=== PATIENT | female | born 1930 | race African-American/Black ===

== ENCOUNTER 2019-01-07 19:29 | Inpatient (IN) | payer OTHER ==
[~2019-01-07] VITALS: Ht 162.6 cm; Wt 68.0 kg
[2019-01-07] MEDS ORDERED: SODIUM CHLORIDE 0.9% 1,000 ML IV ONE (20:06)
[2019-01-07] MEDS ORDERED: ASPIRIN 325MG EC TABLET PO ONE (20:15)
[2019-01-07 20:24] LABS: BASOPHILS % 0.4 % (0.0-2.0); EOSINOPHILS % 1.1 % (0.0-5.0); HEMATOCRIT. 33.5 % (36.0-48.0); HEMOGLOBIN. 11.2 g/dL (12.0-16.0); LYMPHOCYTES % 15.3 % (20.0-50.0); MEAN CORPUSCULAR HEMOGLOBIN 31.3 pg (28.0-32.0); MEAN CORPUSCULAR VOLUME 93.3 fL (81.0-99.0); MEAN PLATELET VOLUME 8.5 fl (7.4-10.4); MONOCYTES % 7.8 % (2.0-8.0); NEUTROPHILS % 75.4 % (40.0-76.0); PLATELET 218 x1000/uL (130-400); RED BLOOD CELL COUNT 3.59 mill/uL (4.2-5.4); RED CELL DISTRIBUTION WIDTH 13.9 % (11.6-14.6)
[2019-01-07 20:28] LABS: CHLORIDE 107 mEq/L (98-107)
[2019-01-07 20:32] LABS: ETHANOL BLOOD < 10 mg/dL
[2019-01-07 20:55] LABS: CLARITY URINE CLOUDY (CLEAR); COLOR URINE YELLOW (YELLOW); KETONES URINE NEGATIVE (NEGATIVE); LEUKOCYTE ESTERASE URINE 3+ (NEGATIVE); NITRITE URINE NEGATIVE (NEGATIVE); OCCULT BLOOD URINE 1+ (NEGATIVE); PH URINE 5.5 (4.5-8.0); PROTEIN URINE NEGATIVE (NEGATIVE); SPECIFIC GRAVITY URINE 1.014 (1.005-1.030)
[2019-01-07] MEDS ORDERED: CEFTRIAXONE 1 G PREMIX 50 ML IV ONE (22:15)
[2019-01-08 00:02] VITALS: BP 129/51
[2019-01-08] MEDS ORDERED: ACETAMINOPHEN 325MG TABLET PO PRN (01:00)
[2019-01-08] MEDS ORDERED: POTA10CA42 PO (01:07)
[2019-01-08] MEDS ORDERED: LATA7.5D OP (01:07)
[2019-01-08] MEDS ORDERED: THYR32.510 MT (01:07)
[2019-01-08] MEDS ORDERED: MIRT7.5T11 PO (01:07)
[2019-01-08] MEDS ORDERED: LOSA1TAB37 MT (01:07)
[2019-01-08 02:50] LABS: CREATINE KINASE 64 IU/L (26-192)
[2019-01-08 02:51] LABS: CREATINE KINASE MB FRACTION 1.2 ng/mL (0.5-3.6)
[2019-01-08 04:00] VITALS: BP 111/53
[2019-01-08 05:59] LABS: BASOPHILS % 0.6 % (0.0-2.0); EOSINOPHILS % 1.9 % (0.0-5.0); HEMATOCRIT. 29.5 % (36.0-48.0); HEMOGLOBIN. 10.1 g/dL (12.0-16.0); LYMPHOCYTES % 27.2 % (20.0-50.0); MEAN CORPUSCULAR HEMOGLOBIN 31.8 pg (28.0-32.0); MEAN CORPUSCULAR VOLUME 93.2 fL (81.0-99.0); MEAN PLATELET VOLUME 9.1 fl (7.4-10.4); MONOCYTES % 8.9 % (2.0-8.0); NEUTROPHILS % 61.4 % (40.0-76.0); PLATELET 194 x1000/uL (130-400); RED BLOOD CELL COUNT 3.17 mill/uL (4.2-5.4); RED CELL DISTRIBUTION WIDTH 13.7 % (11.6-14.6)
[2019-01-08 06:08] LABS: CHLORIDE 110 mEq/L (98-107)
[2019-01-08 06:16] LABS: HDL CHOLESTEROL 42 mg/dL (40-59)
[2019-01-08 06:18] LABS: LDL CHOLESTEROL 71 mg/dL (5-100)
[2019-01-08] MEDS: PANTOPRAZOLE 40MG DR TABLET PO SCH (06:27)
[2019-01-08 08:00] VITALS: BP 119/36
[2019-01-08] MEDS: ASPIRIN 81MG TABLET PO SCH (08:31)
[2019-01-08] MEDS: POTASSIUM CHLORIDE 10MEQ TABLET SR PO SCH (08:31)
[2019-01-08] MEDS: ENOXAPARIN 40MG/0.4ML SYR SUBCUT SCH (08:31)
[2019-01-08] MEDS ORDERED: NATURE THROID 32.5 MG PO SCH (09:00)
[2019-01-08] MEDS: SODIUM CHLORIDE 0.45% 1,000 ML IV SCH ×2 (11:26→23:07)
[2019-01-08 11:57] LABS: BG BASE EXCESS -0.7 mmol/L (-2.0-2.0); BG CARBOXYHEMOGLOBIN 1.1 % (0.5-1.5); BG DEOXYHEMOGLOBIN 5.3 % (0.0-5.0); BG FRACTION INSPIRED OXYGEN 21; BG HCO3 ACT 23.6 mmol/L (22.0-26.0); BG METHEMOGLOBIN 0.3 % (0.0-1.5); BG OXYGEN SATURATION 94.6 % (92.0-98.5); BG OXYHEMOGLOBIN 93.3 % (94.0-97.0); BG PH 7.411 (7.350-7.450); BG PO2 71.9 mmHg (75.0-100.0); BG SAMPLE SITE RIGHT RADIAL; BG TOTAL HEMOGLOBIN 13.8 g/dL (12.0-18.0); BG VENT MODE ROOM AIR
[2019-01-08 13:51] LABS: D-DIMER 0.95 mg/L FEU (<0.50); INR 1.1
[2019-01-08] MEDS ORDERED: HYDROCODONE/ACETAMINOPHEN 5/325MG TABLET PO PRN (14:30)
[2019-01-08] MEDS ORDERED: LACTULOSE 20G/30ML UDC PO PRN (14:30)
[2019-01-08] MEDS ORDERED: HYDRALAZINE 20MG/ML VIAL IV PRN (14:30)
[2019-01-08] MEDS ORDERED: DIPHENHYDRAMINE 50MG/ML VIAL IV PRN (14:30)
[2019-01-08] MEDS ORDERED: IPRATROPIUM/ALBUTEROL 0.5-3(2.5)MG/3ML NEB HHN PRN (14:30)
[2019-01-08] MEDS ORDERED: LORAZEPAM 2MG/ML CPJ IV PRN (14:30)
[2019-01-08] MEDS ORDERED: ONDANSETRON HCL 4MG/2ML INJ IV PRN (14:30)
[2019-01-08 20:00] VITALS: BP 125/85
[2019-01-08] MEDS: MIRTAZAPINE 15MG TABLET PO SCH (21:16)
[2019-01-08] MEDS: LATANOPROST 0.005% OPHTH DROPS 2.5ML BOTHEYE SCH (21:17)
[2019-01-08] MEDS: CEFTRIAXONE 1 G PREMIX 50 ML IV SCH (21:17)
[2019-01-09] VITALS: BP 130/85
[2019-01-09 04:00] VITALS: BP_SYST 146; BP_SYST 149; BP_SYST 154; BP_DIAS 61; BP_DIAS 74; BP_DIAS 77
[2019-01-09] MEDS: PANTOPRAZOLE 40MG DR TABLET PO SCH ×2 (06:47→07:14)
[2019-01-09 06:49] LABS: BASOPHILS % 0.6 % (0.0-2.0); EOSINOPHILS % 1.3 % (0.0-5.0); HEMATOCRIT. 39.6 % (36.0-48.0); HEMOGLOBIN. 13.3 g/dL (12.0-16.0); LYMPHOCYTES % 22.5 % (20.0-50.0); MEAN CORPUSCULAR HEMOGLOBIN 31.2 pg (28.0-32.0); MEAN CORPUSCULAR VOLUME 93.1 fL (81.0-99.0); MEAN PLATELET VOLUME 9.4 fl (7.4-10.4); MONOCYTES % 8.5 % (2.0-8.0); NEUTROPHILS % 67.1 % (40.0-76.0); PLATELET 247 x1000/uL (130-400); RED BLOOD CELL COUNT 4.26 mill/uL (4.2-5.4); RED CELL DISTRIBUTION WIDTH 13.9 % (11.6-14.6)
[2019-01-09 07:23] LABS: CHLORIDE 102 mEq/L (98-107)
[2019-01-09 07:34] LABS: T4 FREE 1.02 ng/dL (0.76-1.46)
[2019-01-09 08:00] VITALS: BP_SYST 148; BP_SYST 164; BP_DIAS 83; BP_DIAS 88
[2019-01-09] MEDS: ASPIRIN 81MG TABLET PO SCH (09:00)
[2019-01-09] MEDS: POTASSIUM CHLORIDE 10MEQ TABLET SR PO SCH (09:00)
[2019-01-09] MEDS: ENOXAPARIN 40MG/0.4ML SYR SUBCUT SCH (09:00)
[2019-01-09] MEDS ORDERED: IOHEXOL-350 100 ML BOTTLE ONE ×2 (12:16→23:14)
[2019-01-09 13:37] LABS: BG BASE EXCESS 4.3 mmol/L (-2.0-2.0); BG CARBOXYHEMOGLOBIN 0.3 % (0.5-1.5); BG DEOXYHEMOGLOBIN 4.9 % (0.0-5.0); BG FRACTION INSPIRED OXYGEN 21; BG HCO3 ACT 28.8 mmol/L (22.0-26.0); BG METHEMOGLOBIN 0.3 % (0.0-1.5); BG OXYGEN SATURATION 95.1 % (92.0-98.5); BG OXYHEMOGLOBIN 94.5 % (94.0-97.0); BG PCO2 42.9 mmHg (35.0-45.0); BG PH 7.445 (7.350-7.450); BG PO2 75.8 mmHg (75.0-100.0); BG SAMPLE SITE RIGHT BRACHIAL; BG TOTAL HEMOGLOBIN 12.4 g/dL (12.0-18.0); BG VENT MODE ROOM AIR
[2019-01-09] MEDS ORDERED: HALOPERIDOL LACTATE 5MG/ML VIAL IM PRN (14:15)
[2019-01-09 16:00] VITALS: BP 138/63
[2019-01-09 18:10] LABS: VITAMIN B12 SERUM 614 pg/mL (211-911)
[2019-01-09 20:00] VITALS: BP 125/47
[2019-01-09] MEDS: MIRTAZAPINE 15MG TABLET PO SCH (21:17)
[2019-01-09] MEDS: LATANOPROST 0.005% OPHTH DROPS 2.5ML BOTHEYE SCH (21:18)
[2019-01-09] MEDS: CEFTRIAXONE 1 G PREMIX 50 ML IV SCH (22:43)
[2019-01-10] VITALS: BP 120/50
[2019-01-10 04:00] VITALS: BP 119/74
[2019-01-10 08:00] VITALS: BP 129/53
[2019-01-10] MEDS ORDERED: FAMOTIDINE 20MG TABLET PO SCH (09:00)
[2019-01-10] MEDS: POTASSIUM CHLORIDE 10MEQ TABLET SR PO SCH (09:24)
[2019-01-10] MEDS: ASPIRIN 81MG TABLET PO SCH (09:24)
[2019-01-10] MEDS: ENOXAPARIN 40MG/0.4ML SYR SUBCUT SCH (09:24)
[2019-01-10 12:00] VITALS: BP 116/63
[2019-01-10 15:08] VITALS: BP 116/63
== END 2019-01-10 16:10 | disposition home or self-care (01) | DRG 74 ==
LOC: ER 19:50 → EDBEDREQ 20:07 → 8WST 22:36 → EDBEDREQ 22:40 → EDBEDREQTM 22:40 → ENRESERV 22:47 → 8WST 01-08 00:15
PROVIDERS: ADMIT Internal Medicine; ATTEND Internal Medicine
DX: G90.8 Other disorders of autonomic nervous system (principal); N39.0 Urinary tract infection, site not specified; F05 Delirium due to known physiological condition; R07.89 Other chest pain; K44.9 Diaphragmatic hernia without obstruction or gangrene; I10 Essential (primary) hypertension; E86.0 Dehydration; D64.9 Anemia, unspecified; E03.9 Hypothyroidism, unspecified; E78.00 Pure hypercholesterolemia, unspecified; E78.5 Hyperlipidemia, unspecified; H40.9 Unspecified glaucoma; I71.2 Thoracic aortic aneurysm, without rupture; R00.1 Bradycardia, unspecified; M13.862 Other specified arthritis, left knee; M13.861 Other specified arthritis, right knee; Z90.710 Acquired absence of both cervix and uterus
CPT/HCPCS: 36415; 36600; 71045; 71275; 80048; 80061; 80320; 81003; 82140; 82375; 82550; 82553; 82607; 82805; 83036; 83880; 84439; 84443; 84484; 85379; 93005; 93306; 93880; 93970; 96361; 96365; 97162; 99285; J0696; J1200; J1650; J7030; J7070; Q9967; G0480

== ENCOUNTER 2019-11-05 16:37 | Inpatient (IN) | payer OTHER ==
[~2019-11-05] VITALS: Ht 177.8 cm; Wt 69.0 kg
[~2019-11-05 16:37] MED LIST: ASPI-1158 MT; CIPR-263 MT; LATA7.5D OP; LOSA1TAB37 MT; MIRT7.5T11 PO; POTA10CA42 PO; THYR32.510 MT
[2019-11-05 18:10] LABS: BASOPHILS % 0.8 % (0.0-2.0); EOSINOPHILS % 2.1 % (0.0-5.0); HEMATOCRIT. 38.9 % (36.0-48.0); HEMOGLOBIN. 12.8 g/dL (12.0-16.0); MEAN CORPUSCULAR HEMOGLOBIN 30.4 pg (28.0-32.0); MEAN CORPUSCULAR VOLUME 92.5 fL (81.0-99.0); MEAN PLATELET VOLUME 8.9 fl (7.4-10.4); MONOCYTES % 7.3 % (2.0-8.0); NEUTROPHILS % 76.8 % (40.0-76.0); PLATELET 236 x1000/uL (130-400); RED CELL DISTRIBUTION WIDTH 13.4 % (11.6-14.6)
[2019-11-05 18:15] LABS: CHLORIDE 103 mEq/L (98-107)
[2019-11-05] MEDS ORDERED: CEFTRIAXONE 1 G PREMIX 50 ML IV ONE (20:00)
[2019-11-06 02:50] VITALS: BP 134/59
[2019-11-06] MEDS ORDERED: ACETAMINOPHEN 325MG TABLET PO PRN (03:30)
[2019-11-06 04:00] VITALS: BP 131/61
[2019-11-06 08:00] VITALS: BP 127/67
[2019-11-06] MEDS: ASPIRIN 81MG TABLET PO SCH (09:48)
[2019-11-06] MEDS: HYDROCHLOROTHIAZIDE 25MG TABLET PO SCH (09:48)
[2019-11-06] MEDS: LOSARTAN POTASSIUM 100 MG TABLET PO SCH (09:49)
[2019-11-06] MEDS: ENOXAPARIN 40MG/0.4ML SYR SUBCUT SCH (09:51)
[2019-11-06] MEDS: POTASSIUM CHLORIDE 10MEQ TABLET SR PO SCH (09:51)
[2019-11-06 11:27] LABS: BG BASE EXCESS -0.5 mmol/L (-2.0-2.0); BG CARBOXYHEMOGLOBIN 0.1 % (0.5-1.5); BG FRACTION INSPIRED OXYGEN 21; BG HCO3 ACT 24.2 mmol/L (22.0-26.0); BG METHEMOGLOBIN 0.1 % (0.0-1.5); BG OXYHEMOGLOBIN 95.8 % (94.0-97.0); BG PCO2 40.4 mmHg (35.0-45.0); BG PH 7.396 (7.350-7.450); BG SAMPLE SITE RIGHT RADIAL; BG TOTAL HEMOGLOBIN 12.3 g/dL (12.0-18.0); BG VENT MODE ROOM AIR
[2019-11-06 12:00] VITALS: BP 113/66
[2019-11-06] MEDS ORDERED: CLONIDINE 0.1MG TABLET PO PRN (12:45)
[2019-11-06] MEDS ORDERED: BISACODYL 10MG SUPP PR PRN (12:45)
[2019-11-06] MEDS ORDERED: ONDANSETRON HCL 4MG/2ML INJ IV PRN (12:45)
[2019-11-06] MEDS ORDERED: HYDROCODONE/ACETAMINOPHEN 5/325MG TABLET PO PRN (12:45)
[2019-11-06] MEDS ORDERED: IPRATROPIUM/ALBUTEROL 0.5-3(2.5)MG/3ML NEB HHN PRN (12:45)
[2019-11-06] MEDS ORDERED: CEFTRIAXONE 1 G PREMIX 50 ML IV SCH (13:00)
[2019-11-06] MEDS: CEFTRIAXONE 1,000 MG in DEXTROSE 5% WATER 50 ML IV SCH (14:39)
[2019-11-06 16:00] VITALS: BP 102/54
[2019-11-06 16:36] LABS: BASOPHILS % 0.7 % (0.0-2.0); EOSINOPHILS % 4.4 % (0.0-5.0); HEMATOCRIT. 37.1 % (36.0-48.0); HEMOGLOBIN. 12.4 g/dL (12.0-16.0); LYMPHOCYTES % 21.1 % (20.0-50.0); MEAN CORPUSCULAR HEMOGLOBIN 30.9 pg (28.0-32.0); MEAN CORPUSCULAR VOLUME 92.2 fL (81.0-99.0); MEAN PLATELET VOLUME 8.5 fl (7.4-10.4); MONOCYTES % 8.9 % (2.0-8.0); NEUTROPHILS % 64.9 % (40.0-76.0); PLATELET 230 x1000/uL (130-400); RED BLOOD CELL COUNT 4.03 mill/uL (4.2-5.4); RED CELL DISTRIBUTION WIDTH 13.5 % (11.6-14.6)
[2019-11-06 16:47] LABS: CHLORIDE 105 mEq/L (98-107)
[2019-11-06 17:44] LABS: CLARITY URINE CLEAR (CLEAR); COLOR URINE YELLOW (YELLOW); KETONES URINE NEGATIVE (NEGATIVE); LEUKOCYTE ESTERASE URINE 3+ (NEGATIVE); NITRITE URINE NEGATIVE (NEGATIVE); OCCULT BLOOD URINE NEGATIVE (NEGATIVE); PROTEIN URINE NEGATIVE (NEGATIVE)
[2019-11-06 20:00] VITALS: BP 107/54
[2019-11-06] MEDS: MIRTAZAPINE 15MG TABLET PO SCH (20:37)
[2019-11-06] MEDS: LATANOPROST 0.005% OPHTH DROPS 2.5ML BOTHEYE SCH (20:37)
[2019-11-06 21:13] LABS: VITAMIN B12 SERUM 1284 pg/mL (211-911)
[2019-11-07] VITALS: BP 110/80
[2019-11-07 04:00] VITALS: BP 115/66
[2019-11-07 08:00] VITALS: BP 107/65
[2019-11-07] MEDS: ASPIRIN 81MG TABLET PO SCH (08:57)
[2019-11-07] MEDS: HYDROCHLOROTHIAZIDE 25MG TABLET PO SCH (08:58)
[2019-11-07] MEDS: LOSARTAN POTASSIUM 100 MG TABLET PO SCH (08:58)
[2019-11-07] MEDS: POTASSIUM CHLORIDE 10MEQ TABLET SR PO SCH (08:58)
[2019-11-07] MEDS: ENOXAPARIN 40MG/0.4ML SYR SUBCUT SCH (08:59)
[2019-11-07] MEDS: LACTULOSE 20G/30ML UDC PO SCH ×2 (11:28→17:31)
[2019-11-07 11:46] VITALS: BP 101/45
[2019-11-07] MEDS: CEFTRIAXONE 1,000 MG in DEXTROSE 5% WATER 50 ML IV SCH (13:13)
[2019-11-07 16:00] VITALS: BP 109/59
[2019-11-07 20:14] VITALS: BP 123/80
[2019-11-07] MEDS: LATANOPROST 0.005% OPHTH DROPS 2.5ML BOTHEYE SCH (20:57)
[2019-11-07] MEDS: MIRTAZAPINE 15MG TABLET PO SCH (20:57)
[2019-11-08] VITALS: BP 118/66
[2019-11-08 04:00] VITALS: BP 122/68
[2019-11-08 06:45] LABS: CHLORIDE 104 mEq/L (98-107)
[2019-11-08 06:49] LABS: HEMATOCRIT 39.1 % (36.0-48.0); HEMOGLOBIN 13.1 g/dL (12.0-16.0); MEAN CORPUSCULAR HEMOGLOBIN 31.1 pg (28.0-32.0); MEAN CORPUSCULAR VOLUME 92.6 fL (81.0-99.0); PLATELET 237 x1000/uL (130-400); RED BLOOD CELL COUNT 4.22 mill/uL (4.2-5.4); RED CELL DISTRIBUTION WIDTH 13.8 % (11.6-14.6)
[2019-11-08 08:00] VITALS: BP 122/68
[2019-11-08] MEDS: ASPIRIN 81MG TABLET PO SCH (08:40)
[2019-11-08] MEDS: POTASSIUM CHLORIDE 10MEQ TABLET SR PO SCH (08:40)
[2019-11-08] MEDS: ENOXAPARIN 40MG/0.4ML SYR SUBCUT SCH (08:40)
[2019-11-08] MEDS: LOSARTAN POTASSIUM 100 MG TABLET PO SCH (08:40)
[2019-11-08] MEDS: HYDROCHLOROTHIAZIDE 25MG TABLET PO SCH (08:40)
[2019-11-08 12:00] VITALS: BP 117/66
[2019-11-08] MEDS: CEFTRIAXONE 1,000 MG in DEXTROSE 5% WATER 50 ML IV SCH (14:32)
[2019-11-08 16:00] VITALS: BP_SYST 115; BP_SYST 117; BP_DIAS 66
== END 2019-11-08 18:15 | disposition home or self-care (01) | DRG 70 ==
LOC: ER 16:37 → EDBEDREQSVC 22:01 → EDBEDREQ 22:01 → ENRESERV 11-06 02:15 → 8WST 11-06 02:53
PROVIDERS: ADMIT Internal Medicine; ATTEND Internal Medicine
DX: G93.40 Encephalopathy, unspecified (principal); I50.33 Acute on chronic diastolic (congestive) heart failure; N30.90 Cystitis, unspecified without hematuria; E03.9 Hypothyroidism, unspecified; H40.9 Unspecified glaucoma; I11.0 Hypertensive heart disease with heart failure; F03.90 Unspecified dementia, unspecified severity, without behavioral disturbance, psychotic disturbance, mood disturbance, and anxiety; Z88.0 Allergy status to penicillin; Z90.710 Acquired absence of both cervix and uterus; Z79.82 Long term (current) use of aspirin; Z79.899 Other long term (current) drug therapy; Z87.440 Personal history of urinary (tract) infections
CPT/HCPCS: 36415; 36600; 70551; 80048; 80053; 81003; 82140; 82375; 82607; 82805; 84443; 85025; 85027; 86301; 87426; 97162; 99285; J0696; J1650; J7060